=== PATIENT | female | born 1985 | race Caucasian/White ===

== ENCOUNTER → 2024-03-27 | Outpatient (CLI) | payer BC, SELFPAY ==
[2024-03-28 14:49] LABS: BVAG Candida Negative (Negative); Bacterial Vaginosis Markers Negative (Negative); Candida glabrata Negative (Negative); Candida krusei PCR Negative (Negative); Trichomonas Negative (Negative)
== END | disposition home or self-care (01) ==
LOC: SLDO 13:01
PROVIDERS: Referring Provider Specialist; Visit Provider Specialist
DX: N76.0 Acute vaginitis (principal); A59.01 Trichomonal vulvovaginitis; B37.31 Acute candidiasis of vulva and vagina
CPT/HCPCS: 81514